=== PATIENT | male | born 1970 | race Caucasian/White ===

== ENCOUNTER 2020-12-31 12:17 | Emergency (ER) | payer BC, OTHER, SELFPAY ==
[2020-12-31 12:57] VITALS: BP 163/109; PULSE 73; RESP 18; TEMP 37.2; O2SAT 100
--- NOTE | 2020-12-31 13:16 | ED.MALEGU ---
HPI - Male Genitourinary General Chief complaint: Urogenital-Male Stated complaint: Male Urogenital Time Seen by Provider: 12/31/20 13:16 Source: patient Mode of arrival: ambulatory Limitations: no limitations History of Present Illness HPI Narrative: Waqar Messer is a 50 yo male with a PMH of hypertension who comes to [facility] with complaints of urinary tract infection that been going on and off for 3 to 4 days. He has had kidney stones before, patient was not kidney stones. States that he does not believe it to be possibly an STD either because he has been monogamous relationship for the last 10 years Related Data Allergies Allergy/AdvReac Type Severity Reaction Status Date / Time No Known Allergies Allergy Verified 12/31/20 13:18 Review of Systems Review of Systems: CONSTITUTIONAL: Denies fever, chills, sweats. EYES: Denies visual changes, redness, discharge. ENT: Denies rhinorrhea, congestion, sore throat, otalgia. CARDIOVASCULAR: Denies chest pain, palpitations, edema. RESPIRATORY: Denies dyspnea, wheezing, cough GASTROINTESTINAL: Denies abdominal pain, nausea, vomiting, diarrhea. GENITOURINARY: Has dysuria, hematuria, abnormal discharge SKIN: Denies rash or itching. NEUROLOGIC: Denies numbness, or focal weakness. PSYCHIATRIC: Denies anxiety or depression. [facility] Past Medical History Medical History HTN (hypertension) Renal calculi Family History Family History Other Hypertension Social History Social History Smoking status: Never smoker Alcohol intake: current Comments At time of signature, I agree with nursing past medical, surgical, social and family history. There is no relevant family history pertinent to the presenting complaint. Exam Narrative: GENERAL: This is a well-nourished, well-developed patient, in mild distress. HEAD: normocephalic, atraumatic. EYES: Sclera clear/white. Vision is grossly intact. EARS: External ears normal. Hearing grossly intact. NOSE: External nose normal without nasal discharge, nares without redness, no rhinorrhea. THROAT: Mucous membranes moist, NECK: Neck supple, non-tender CARDIOVASCULAR: Regular rate and rhythm without murmurs, gallops, or rubs. RESPIRATORY: Clear to auscultation. Breath sounds equal bilaterally. No wheezes, rales, or rhonchi. GASTROINTESTINAL: Abdomen soft, non-tender, SKIN: warm, intact with no suspicious lesions or rash, good texture and turgor. NEURO: awake, alert, and oriented to person, place and time. There were no obvious focal neurologic abnormalities. Steady gait EXTREMITIES: Normal range of motion. BACK: Nontender without deformity Course Course Emergency Course: Patient comes with dysuria -ua shows nitrite , 1+ leuk and protein,trace blood Sngular partner, declines other testing Started on Cipro 500 twice daily x7 days Vital Signs Vital signs: Vital Signs Temperature 98.9 F 12/31/20 12:57 Pulse Rate 73 12/31/20 12:57 Respiratory Rate 18 12/31/20 12:57 Blood Pressure 163/109 H 12/31/20 12:57 Pulse Oximetry 100 12/31/20 12:57 Temperature 98.9 F 12/31/20 12:57 Pulse Rate 73 12/31/20 12:57 Respiratory Rate 18 12/31/20 12:57 Blood Pressure 163/109 H 12/31/20 12:57 Pulse Oximetry 100 12/31/20 12:57 MDM - Male Genitourinary Differential Diagnosis Differential diagnosis: Likely urinary tract infection, urethritis, prostatitis and other Lab Data Labs: Urine Glucose Negative Reference Range: Negative Urine Bilirubin Negative Reference Range: Negative Urine Ketone Negative Reference Range: Negative Urine Specific [place]
== END 2020-12-31 13:33 | disposition home or self-care (01) ==
PROVIDERS: Emergency Provider Nurse Practitioner; PCP Internal Medicine
DX: N30.01 Acute cystitis with hematuria (principal); I10 Essential (primary) hypertension
CPT/HCPCS: 81003; 87077; 87086; 87088; 87186; 99203; G0463

== ENCOUNTER 2022-07-25 16:44 | Emergency (ER) | payer OTHER, SELFPAY ==
--- NOTE | ~2022-07-25 | CT_ITS ---
Liver EXAMINATION: CT abd pelvis lumbar wo con DATE: 07/25/2022 19:08 INDICATION: kidney stone r/o, hx of renal cancer TECHNIQUE: Computed tomography (CT) of the abdomen and pelvis and lumbar spine was performed without intravenous contrast. Automated exposure control and iterative reconstruction technique were employed . The dose-length product was 475.23 mGy-cm. COMPARISON: None. FINDINGS: Lower thorax: Dependent atelectasis Liver: Scattered hypodensities, too small to characterize but most likely represents cysts or hemangi omas. Biliary/Gallbladder: Gallbladder is normal. No bile duct dilation. Pancreas: No mass or duct dilation. Spleen: Normal. Adrenals:No mass. Kidneys: No suspicious mass, stone, or hydronephrosis. Post surgical change along the posterior aspec t of the right midpole. Simple right midpole cyst. GI tract: No small or large bowel dilation. Normal appendix. Mesentery/Peritoneum: No ascites, mass, or free air. Retroperitoneum: No mass. Atherosclerotic abdominal aortic and/or arterial calcifications. Pelvis: Pelvic organs are within normal limits. Soft Tissues: Soft tissues and body wall unremarkable. Bones (excluding spine): No acute osseous finding. LUMBAR SPINE: 5 nonrib-bearing lumbar-type vertebral bodies. Pedicles intact. Normal vertebral body alignment. Vert ebral body heights preserved. Disc spaces maintained. Mild-moderate diffuse disc bulges at L4-5 and L 5-S1. 3 mm central protrusion at L4-5. 5 mm central extrusion L5-S1. Mild facet arthropathy at L5-S1, otherwise normal facets and posterior elements. IMPRESSION: No acute abdominopelvic process detected. No acute fracture or traumatic malalignment detected in the lumbar spine. Reviewed, dictated and finalized at location K. IMPRESSION: No acute abdominopelvic process detected. No acute fracture or traumatic malali gnment detected in the lumbar spine.
[2022-07-25 16:47] VITALS: BP 151/91; PULSE 81; RESP 16; TEMP 36.6; O2SAT 99
--- NOTE | 2022-07-25 17:31 | ED.GENADULT ---
HPI - General Adult General Chief complaint: Unspecified <Nora Thompson PA-C - Last Filed: 07/25/22 21:11> Stated complaint: lightheaded, back pain since <Nora Thompson PA-C - Last Filed: 07/25/22 21:11> Time Seen by Provider: 07/25/22 17:01 <Nora Thompson PA-C - Last Filed: 07/25/22 21:11> History of Present Illness HPI narrative: 51-year-old male with a history of hypertension, renal calculi, hemorrhoids and kidney cancer reports for evaluation of bilateral lower back pain/flank pain, worse on the right x4 days and rectal bleeding x2 weeks. Patient reports the back pain has been been waxing and waning, and currently it is the least amount of pain he has felt in 4 days. He reports using a heating pad with some relief. Pt is unsure what kind of kidney cancer he had. He was dx 10-11 years ago, was told it was slow growing , had it surgically removed, then was followed with scans for yearly for 5 years after surgery without return of cancer. He has not had a scan since. Pt reports he believes his hemorrhoids have returned due to having bright red blood on the toilet paper when he has a BM for the past 2 weeks and feeling increased lethargy. He reports a history of KIKO requiring iron transfusions secondary to rectal bleeding. He was evaluated by Dr. Fernando and underwent a procedure 1 year ago for hemorrhoids with improvement. Pt reports having a routine colonoscopy scheduled for next with Dr. Blackwood. He has a history of colon polyps on previous colonoscopy 3 years ago. He denies abdominal pain, rectal pain, dysuria, urinary frequency, urinary urgency, hematuria, fever, body aches, chills, chest pain or shortness of breath, constipation or diarrhea, vomiting. Denies saddle anesthesia, loss of bowel or bladder control, IV drug use, unintentional weight loss, night sweats. <Nora Thompson PA-C - Last Filed: 07/25/22 21:11> Related Data Home medications: Home Medications Medication Instructions Recorded Confirmed atenolol 100 mg tablet 100 mg PO DAILY 12/31/20 12/31/20 lisinopril 20 mg tablet 20 mg PO DAILY 12/31/20 12/31/20 <Nora Thompson PA-C - Last Filed: 07/25/22 21:11> Allergies/adverse reactions: Allergies Allergy/AdvReac Type Severity Reaction Status Date / Time No Known Allergies Allergy Verified 12/31/20 13:18 <Nora Thompson PA-C - Last Filed: 07/25/22 21:11> Review of Systems Review of Systems: CONSTITUTIONAL: Denies fever, chills EYES: Denies visual changes, redness, or discharge. ENT: Denies rhinorrhea, congestion, sore throat, or otalgia. CARDIOVASCULAR: Denies chest pain, palpitations, or edema. RESPIRATORY: Denies cough or dyspnea. GASTROINTESTINAL: Denies abdominal pain, vomiting, or diarrhea. GENITOURINARY: Denies dysuria or hematuria. SKIN: Denies rash or itching. MUSCULOSKELETAL: See HPI NEUROLOGIC: Denies headache, numbness, dizziness, or weakness. PSYCHIATRIC: Denies anxiety or depression. <Nora Thompson PA-C - Last Filed: 07/25/22 21:11> PMFSH Past Medical History Medical History: Medical History HTN (hypertension) Renal calculi <Nora Thompson PA-C - Last Filed: 07/25/22 21:11> Family History Family History: Family History Other Hypertension <Nora Thompson PA-C - Last Filed: 07/25/22 21:11> Social History Social History: Social History Smoking status: Never smoker Alcohol intake: current <Nora Thompson PA-C - Last Filed: 07/25/22 21:11> Exam Narrative: GENERAL: Well-appearing, well-nourished, and in no acute distress. Patient resting comfortably in the exam bed. He is pleasant and conversational. HEAD: Normocephalic, atraumatic. EYES: PERRLA and EOMI. ENT: Nares clear, no rhinorrhea or epistaxis. Mucous membr
[2022-07-25 17:45] VITALS: PULSE 73
[2022-07-25 17:46] VITALS: PULSE 71
[2022-07-25 17:47] VITALS: BP 129/95; PULSE 79
[2022-07-25] MEDS: MORPHINE SULFATE (*CRX) 4 MG/ML INJ IV PUSH (17:55)
[2022-07-25] MEDS: SODIUM CHLORIDE 0.9% IV 1,000 ML 999 ML IV CONT ×2 (17:56→19:32)
[2022-07-25 18:03] LABS: Basophils Percent Auto 0.3 % (0.2-1.2); Eosinophils Percent Auto 0.2 % (0-4.4); Hematocrit 38.5 % (42.0-52.0); Hemoglobin 12.7 g/dL (14.0-18.0); Immature Granulocyte Absolute 0.07 K/mm3 (0.00-0.031); Immature Granulocyte Percent A 0.6 % (0-0.5); Lymphocytes Absolute Auto 0.88 K/mm3 (0.9-3.2); Lymphocytes Percent Auto 7.4 % (18.3-44.2); Mean Corpuscular Hemoglobin 27.9 pg (26-34); Mean Corpuscular Volume 84.4 fl (80-100); Mean Platelet Volume 11.3 fl (7.4-10.4); Monocytes Absolute Auto 1.3 K/mm3 (0.1-0.6); Monocytes Percent Auto 10.7 % (2.6-8.5); Neutrophils Absolute Auto 9.6 K/mm3 (1.3-6.7); Neutrophils Percent Auto 80.8 % (45.5-73.1); Platelet Count Result 195 k/mm3 (150-375); Red Blood Count 4.56 M/mm3 (4.6-6.20); Red Cell Distribution Width 14.9 % (11.5-14.5); White Blood Count 11.9 K/mm3 (4.5-10.0)
[2022-07-25 18:14] LABS: Lactic Acid Reflex 1.1 mmol/L (0.7-2.0)
[2022-07-25 18:17] LABS: Alanine Aminotransferase 23 U/L (6-50); Albumin Level 4.3 g/dL (3.5-5.1); Alkaline Phosphatase 62 U/L (38-126); Anion Gap 7 mmol/L (8-16); Aspartate Amino Transferase 28 U/L (17-59); Bilirubin,Total 0.9 mg/dL (0.2-1.3); Blood Urea Nitrogen 18 mg/dL (9-20); Calcium 8.9 mg/dL (8.4-10.2); Carbon Dioxide 26 mmol/L (22-30); Chloride 102 mmol/L (98-107); Estimated CRCL calculation 82 ml/min; Estimated Glomerular Filt Rate > 60; Glucose 106 mg/dL (65-110); Lipase 41 U/L (23-300); Potassium 3.7 mmol/L (3.4-5.0); Sodium 135 mmol/L (137-145)
[2022-07-25] MEDS: CYCLOBENZAPRINE HCL 10 MG TABLET PO (19:19)
[2022-07-25 19:21] VITALS: BP 152/91; PULSE 79; RESP 16; O2SAT 99
[2022-07-25 19:40] LABS: Appearance Urine Clear (Clear); Bilirubin Urine Negative (Negative); Blood Urine Negative (Negative); Color Urine Yellow (Yellow); Glucose Urine UA Negative (Negative); Ketones Urine Negative (Negative); Leukocyte Esterase Ur Negative LEU/UL (Negative); Nitrate Urine Negative (Negative); Protein Urine Negative (Negative); Specific Grav Ur 1.016 (1.001-1.035); pH Urine 7.5 (5.0-9.0)
[2022-07-25 19:46] LABS: Add Urine Microscopic? NO
[2022-07-25 20:36] VITALS: BP 153/85; PULSE 81; RESP 16; O2SAT 99
== END 2022-07-25 21:15 | disposition home or self-care (01) ==
PROVIDERS: Emergency Provider Physician Assistant; PCP Family Medicine
DX: M54.50 Low back pain, unspecified (principal); K62.5 Hemorrhage of anus and rectum; I10 Essential (primary) hypertension; Z87.442 Personal history of urinary calculi; Z85.528 Personal history of other malignant neoplasm of kidney
CPT/HCPCS: 36415; 72131; 74176; 80053; 81003; 83605; 83690; 85025; 96361; 96374; 99284; A9270; J2270; J7030